=== PATIENT | female | born 1970 | race African-American/Black ===

== ENCOUNTER 2016-08-28 09:33 | Emergency (ER) | payer MEDICAID ==
[~2016-08-28] VITALS: Ht 170.2 cm; Wt 100.5 kg
[~2016-08-28 09:33] MED LIST: BENA40TA2 PO; METO-99 PO
[2016-08-28 10:52] LABS: BLOOD UREA NITROGEN 8 mg/dL (7-18)
[2016-08-28 11:18] VITALS: BP 152/81
== END 2016-08-28 12:00 | disposition home or self-care (01) ==
LOC: ED 10:42
DX: R55 Syncope and collapse (principal); I10 Essential (primary) hypertension
CPT/HCPCS: 36415; 80048; 82040; 83735; 84443; 85025; 93005

== ENCOUNTER 2016-10-03 20:29 | Emergency (ER) | payer MEDICAID, OTHER ==
[~2016-10-03] VITALS: Ht 170.2 cm; Wt 104.0 kg
[2016-10-03 20:30] VITALS: BP 171/89
== END 2016-10-03 22:04 | disposition home or self-care (01) ==
LOC: ED 21:45
DX: M25.461 Effusion, right knee (principal); G89.11 Acute pain due to trauma; I10 Essential (primary) hypertension
CPT/HCPCS: 29505; 99283

== ENCOUNTER 2017-03-22 07:32 | Emergency (ER) | payer MEDICAID ==
[~2017-03-22] VITALS: Ht 170.2 cm; Wt 103.1 kg
[~2017-03-22 07:32] MED LIST changes: +AMLO10TA2 PO; +BUPR300T49 PO; +CLON0.1T PO; +HYDR-882 PO; +LAMO100T PO; +TRAZ150T62 PO; +ZIPR80CA3 PO
[2017-03-22 07:35] VITALS: BP 182/94
== END 2017-03-22 09:28 | disposition home or self-care (01) ==
LOC: ED 08:44
DX: I88.9 Nonspecific lymphadenitis, unspecified (principal); G40.909 Epilepsy, unspecified, not intractable, without status epilepticus; I10 Essential (primary) hypertension; Z88.0 Allergy status to penicillin; Z90.49 Acquired absence of other specified parts of digestive tract
CPT/HCPCS: 99281